=== PATIENT | male | born 1965 | race Caucasian/White ===

== ENCOUNTER 2016-11-24 11:45 | Emergency (ER) | payer MEDICAID ==
[~2016-11-24] VITALS: Ht 177.8 cm; Wt 70.3 kg
[2016-11-24] MEDS ORDERED: Morgan Lens TOPIC ONE (12:00)
[2016-11-24] MEDS ORDERED: Tetracaine 0.5% Opth Soln RIGHT EYE ONE (12:00)
[2016-11-24 12:16] VITALS: BP 127/82
[2016-11-24] MEDS ORDERED: GENOPTIC O.O1 APPLIC BOTH EYES (12:32)
[2016-11-24 12:53] VITALS: BP 128/85
[2016-11-24 12:56] VITALS: BP 128/85
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
== END 2016-11-24 12:57 | disposition home or self-care (01) ==
LOC: EMR 12:00
DX: Z77.098 Contact with and (suspected) exposure to other hazardous, chiefly nonmedicinal, chemicals (principal); H57.11 Ocular pain, right eye; I10 Essential (primary) hypertension; J45.909 Unspecified asthma, uncomplicated
CPT/HCPCS: 96374

== ENCOUNTER 2017-01-04 19:37 | Emergency (ER) | payer MEDICAID ==
[~2017-01-04] VITALS: Ht 177.8 cm; Wt 70.3 kg
[~2017-01-04 19:37] MED LIST: GENOPTIC O.O1 APPLIC BOTH EYES
[2017-01-04] MEDS ORDERED: Ketorolac 30mg Inj IM ONE (20:15)
[2017-01-04 20:31] VITALS: BP 102/69
[2017-01-04] MEDS ORDERED: CYCLOBENZAPRINE10 MG ORAL (20:37)
[2017-01-04] MEDS ORDERED: IBUPROFEN600 MG ORAL (20:37)
[2017-01-04 20:51] VITALS: BP 102/69
--- NOTE | 2017-01-06 06:44 | Emergency Room Report ---
History of Present Illness General Chief Complaint: Pain Source: Patient Present Illness HPI 52-year-old male presents ED complaining of right shoulder pain. States pain started 2 days ago. Started when he woke up. Pain is localized behind the shoulder blade radiating through the neck, 5/10, sharp, worse with movement. No other aggravating or relieving factors. Tried [id number] Motrin without relief. Denies neck stiffness. Denies fevers chills. No other aggravating or relieving factors. Denies any other associated symptom Allergies: Uncoded Allergies: IV DYE (Allergy, Unknown, 11/24/16) Patient History Past Medical History: HTN, asthma Past Surgical History: none Pertinent Family History: none Social History: Denies: alcohol use, drug use, smoking Immunizations: UTD Reviewed Nursing Documentation: PMH: Agreed, PSxH: Agreed Nursing Documentation-PMH Past Medical History: No History, Except For Hx Hypertension: Yes Hx Asthma: Yes Review of Systems All Other Systems: negative except mentioned in HPI Physical Exam Vital Signs Date Time Temp Pulse Resp B/P Pulse Ox O2 Delivery O2 Flow Rate FiO2 01/04/17 20:01 98.2 87 16 98/66 100 Room Air Sp02 EP Interpretation: reviewed, normal General Appearance: no apparent distress, alert, GCS 15, non-toxic Head: normocephalic Eyes: bilateral eye PERRL, bilateral eye normal inspection ENT: hearing grossly normal, normal pharynx, no angioedema, normal voice Neck: full range of motion, supple/symm/no masses, tender lateral Respiratory: chest non-tender, lungs clear, normal breath sounds, speaking full sentences Cardiovascular #1: normal inspection Gastrointestinal: normal inspection Rectal: deferred Genitourinary: no CVA tenderness Musculoskeletal: tender - R shoulder blade Neurologic: alert, oriented x3, responsive, motor strength/tone normal, sensory intact, speech normal Psychiatric: normal inspection Skin: normal inspection Lymphatic: normal inspection Medical Decision Making Diagnostic Impression: Primary Impression: Shoulder strain Qualified Codes: S46.911A - Strain of unspecified muscle, fascia and tendon at shoulder and upper arm level, right arm, initial encounter ER Course Hospital Course 52-year-old male presents to ED complaining of R shoulder pain no trauma Differential diagnoses include: Fracture, dislocation, sprain, contusion, bursitis Clinical course Patient placed on stretcher. After initial history, physical exam reveals an middle-aged male in no acute distress. There is some tenderness under the right shoulder blade radiating through the neck. No midline tenderness. Full range of motion shoulder. Remainde of exam negative. Clinical findings consistent with muscle strain. Reassurance given to patient. Patient given toradol in ED with pain improved. Diagnosis - shoulder strain stable and discharged to home with prescription for Motrin, flexeril. Followup with PMD. Return to ED if symptoms recur or worsen Last Vital Signs Date Time Temp Pulse Resp B/P Pulse Ox O2 Delivery O2 Flow Rate FiO2 01/04/17 20:51 98.1 91 15 102/69 99 Room Air Status: improved Disposition: HOME, SELF-CARE Condition: Stable Scripts Cyclobenzaprine Hcl* (FLEXERIL*) 10 Mg Tablet 10 MG ORAL TID Y for Muscle Spasm, #20 TAB Prov: MESFIN CASTRO M.D. 01/04/17 Ibuprofen* (MOTRIN*) 600 Mg Tablet 600 MG ORAL Q8H Y for For Pain, #30 TAB 0 Refills Prov: MESFIN CASTRO M.D. 01/04/17 Referrals: NON PHYSICIAN (PCP) Patient Instructions: Shoulder Sprain MESFIN CASTRO M.D. Jan 06, 2017 06:44
== END 2017-01-04 20:52 | disposition home or self-care (01) ==
LOC: EMR 20:48
DX: S46.911A Strain of unspecified muscle, fascia and tendon at shoulder and upper arm level, right arm, initial encounter (principal); X58.XXXA Exposure to other specified factors, initial encounter; Y92.89 Other specified places as the place of occurrence of the external cause; I10 Essential (primary) hypertension; J45.909 Unspecified asthma, uncomplicated
CPT/HCPCS: 96372; 99283; J1885